=== PATIENT | male | born 1960 | race Caucasian/White ===

== ENCOUNTER 2016-12-08 18:26 | Emergency (ER) | payer OTHER, SELFPAY ==
[~2016-12-08] VITALS: Ht 188 cm; Wt 109.1 kg
[2016-12-08 18:56] VITALS: BP 140/80
[2016-12-08] MEDS ORDERED: PLEASE ENTER HEIGHT AND WEIGHT MC SCH (19:00)
[2016-12-08] MEDS ORDERED: SODIUM CHLORIDE 0.9% 1,000ML IVBOLUS ONE (19:00)
[2016-12-08] MEDS ORDERED: PLEASE ENTER ALLERGIES MC SCH ×2 (19:00)
[2016-12-08 19:06] LABS: HEMATOCRIT 41.2 % (39.2-51.8); HEMOGLOBIN 14.1 g/dL (13.7-18.0); WHITE BLOOD COUNT 5.9 x10^3/uL (3.4-10)
[2016-12-08 19:14] LABS: BLOOD UREA NITROGEN 29 mg/dL (7-18)
[2016-12-08] MEDS ORDERED: NIFE30TA2 PO (19:27)
[2016-12-08] MEDS ORDERED: TACR5CAP4 PO (19:27)
[2016-12-08] MEDS ORDERED: LAMO100T PO (19:27)
[2016-12-08] MEDS ORDERED: ACETAMINOPHEN 325 MG TABLET PO ONE (19:30)
[2016-12-08] MEDS ORDERED: ACETAMINOPHEN 325 MG TABLET ONE (19:48)
[2016-12-08] MEDS ORDERED: ONDANSETRON 2MG/ML, 2ML ONE (19:55)
[2016-12-08] MEDS ORDERED: ONDANSETRON 2MG/ML, 2ML IVPush ONE (20:30)
== END 2016-12-08 20:13 | disposition home or self-care (01) ==
LOC: ED 19:35
DX: R56.9 Unspecified convulsions (principal)
CPT/HCPCS: 36415; 80048; 82040; 85025; 93005; 96374; 96375; 99285; J2405; J7030